=== PATIENT | female | born 2000 | race Native Hawaiian/Other Pacific Islander ===

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

== ENCOUNTER 2020-06-04 10:14 | Outpatient (CLI) | payer OTHER | END 2020-06-04 20:54 | disposition home or self-care (01) | LOC: RAD 10:14 | PROVIDERS: ATTEND Nurse Practitioner Family | DX: R05 Cough (principal) ==